=== PATIENT | female | born 1960 | race Caucasian/White ===

== ENCOUNTER 2019-11-05 10:53 | Outpatient (CLI) | payer BC ==
--- NOTE | 2019-11-05 15:40 | RAD ---
RIGHT 4TH DIGIT 2-VIEW RADIOGRAPH: INDICATION: History of right 4th digit pain after hitting the toe against a boot. FINDINGS: There is an obliquely oriented fracture involving the distal phalangeal base of the right 4th digit. No additional fracture is evident. IMPRESSION: Obliquely oriented, minimally displaced fracture involving the distal phalangeal base of the right 4t h digit. POS: [facility]
== END 2019-11-05 10:54 | disposition home or self-care (01) ==
LOC: SCSRAD 10:53
PROVIDERS: ATTEND Family Medicine
DX: S92.531A Displaced fracture of distal phalanx of right lesser toe(s), initial encounter for closed fracture (principal)